=== PATIENT | male | born 1955 | race Caucasian/White ===

== ENCOUNTER 2019-05-07 14:14 | Outpatient (CLI) | payer BC ==
--- NOTE | 2019-05-07 16:07 | Diagnostic Imaging Report ---
YESENIA DO [facility] [id number] Formerly [facility], [facility] [address] [address] Report Submission Date: May 07, 2019 2:38:24 PM CDT Patient Study Name: GINETTE MEDRANO Date: May 07, 2019 2:23:15 PM CDT Modality Type: CT\SR Gender: M Description: CT BRAIN W/O CONTRAST : 53 Institution: [facility] Physician: YESENIA DO Head CT without contrast History: Follow-up subdural hematoma noted on an outside CT from a fall in March Technique: Axial images were obtained from the skull base to the vertex without IV contrast. Findings: The ventricular system is normal in size and configuration. There is normal parenchymal attenuation. No intra or extra-axial hemorrhage is noted. Atherosclerotic calcifications of the bilateral vertebral arteries are present. Visualized paranasal sinuses and mastoid air cells are clear. The calvarium is intact. Impression: No acute intracranial abnormality. No subdural hematoma is seen. Electronically signed on May 07, 2019 2:38:24 PM CDT by: Tina BOONE
== END 2019-05-07 14:16 ==
LOC: RAD 14:14
PROVIDERS: ATTEND Family Medicine
DX: I62.00 Nontraumatic subdural hemorrhage, unspecified (principal)
CPT/HCPCS: 70450